=== PATIENT | female | born 2005 | race African-American/Black ===

== ENCOUNTER 2025-06-11 21:16 | Emergency (ER) | payer OTHER ==
[~2025-06-11] VITALS: Ht 165.1 cm; Wt 63.6 kg
[2025-06-11 21:23] VITALS: BP 138/83; PULSE 80; RESP 17; TEMP 98.7; O2SAT 98
== END 2025-06-11 23:07 | disposition home or self-care (01) ==
LOC: EMS 21:16
DX: Z32.02 Encounter for pregnancy test, result negative (principal)
CPT/HCPCS: 84702; 99283